=== PATIENT | male | born 1965 | race Native Hawaiian/Other Pacific Islander ===

== ENCOUNTER 2020-12-09 10:27 | Outpatient (CLI) | payer BC, OTHER ==
[~2020-12-09 10:27] MED LIST: AMLO5TAB PO; ASPIRIN/ENTERIC81 MG OR; AZOR1 TA1 PO; BENICAR20 MG PO; CEFTIN500 MG OR; CIPRO500 MG PO; FLONASE0.05 %
== END 2020-12-09 22:40 | disposition home or self-care (01) ==
LOC: LAB 10:27
PROVIDERS: ATTEND Internal Medicine
DX: U07.1 COVID-19 (principal); Z20.822 Contact with and (suspected) exposure to COVID-19
CPT/HCPCS: 87635; G2023; U0003